=== PATIENT | female | born 1960 | race Caucasian/White ===

== ENCOUNTER → 2016-07-03 | Outpatient (REF) ==
[~2016-07-03] MED LIST: BENICAR HCT 251 TAB PO; CENESTIN0.9 MG PO; CEPHALEXIN500 M1 PO
== END ==
LOC: WSOH 08:00
DX: Z01.89 Encounter for other specified special examinations (principal)

== ENCOUNTER → 2016-08-08 | Outpatient (CLI) | payer BC | LOC: MC.RAD 08:59 | DX: Z12.31 Encounter for screening mammogram for malignant neoplasm of breast (principal) ==

== ENCOUNTER → 2017-04-24 | Outpatient (CLI) | payer BC | LOC: COL.RAD 09:27 | DX: K43.9 Ventral hernia without obstruction or gangrene (principal) ==

== ENCOUNTER → 2017-09-04 | Outpatient (CLI) | payer BC | LOC: COL.RAD 08:04 | DX: R14.0 Abdominal distension (gaseous) (principal); R11.0 Nausea ==

== ENCOUNTER → 2017-09-13 | Outpatient (CLI) | payer BC | LOC: MC.RAD 14:18 | DX: Z12.31 Encounter for screening mammogram for malignant neoplasm of breast (principal) ==

== ENCOUNTER 2018-01-12 00:21 | Emergency (ER) | payer BC ==
[~2018-01-12] VITALS: Ht 167.6 cm; Wt 78.2 kg
[2018-01-12 00:25] VITALS: BP 216/98; PULSE 86; TEMP 97.7
== END 2018-01-12 01:52 | disposition left against medical advice (07) ==
LOC: COL.ER 00:21
DX: J02.9 Acute pharyngitis, unspecified (principal)

== ENCOUNTER 2018-03-04 16:57 | Emergency (ER) | payer OTHER, BC ==
[~2018-03-04] VITALS: Ht 167.6 cm; Wt 77.3 kg
[2018-03-04 17:00] VITALS: TEMP 98.1
[2018-03-04] MEDS ORDERED: BYSTOLIC5 MG PO (17:17)
[2018-03-04] MEDS ORDERED: ESTRACE 1MG1 MG/TAB PO (17:18)
[2018-03-04] MEDS ORDERED: FLEXERIL5 MG PO (19:03)
[2018-03-04] MEDS ORDERED: NORVASC 5MG5 MG/TAB PO (19:03)
[2018-03-04 19:41] VITALS: BP 167/90; PULSE 59
== END 2018-03-04 19:45 | disposition home or self-care (01) ==
LOC: COL.ER 16:57
DX: S00.93XA Contusion of unspecified part of head, initial encounter (principal); S60.221A Contusion of right hand, initial encounter; I10 Essential (primary) hypertension; W10.9XXA Fall (on) (from) unspecified stairs and steps, initial encounter; Y92.59 Other trade areas as the place of occurrence of the external cause

== ENCOUNTER → 2018-10-01 | Outpatient (CLI) | payer BC ==
[~2018-10-01] MED LIST changes: +BYSTOLIC5 MG PO; +ESTRACE 1MG1 MG/TAB PO; +FLEXERIL5 MG PO; +NORVASC 5MG5 MG/TAB PO
== END ==
LOC: MC.RAD 09-15 07:15
DX: Z12.31 Encounter for screening mammogram for malignant neoplasm of breast (principal)

== ENCOUNTER → 2019-10-05 | Outpatient (CLI) | payer BC | LOC: MC.RAD 06:58 | DX: Z12.31 Encounter for screening mammogram for malignant neoplasm of breast (principal) ==

== ENCOUNTER → 2020-10-05 | Outpatient (CLI) | payer BC | LOC: MC.RAD 07:28 | DX: Z12.31 Encounter for screening mammogram for malignant neoplasm of breast (principal); N64.89 Other specified disorders of breast ==

== ENCOUNTER → 2020-10-07 | Outpatient (CLI) | payer BC | LOC: MC.RAD 10:52 | DX: N64.89 Other specified disorders of breast (principal) ==

== ENCOUNTER → 2021-10-16 | Outpatient (CLI) | payer BC | LOC: MC.RAD 08:28 | DX: Z12.31 Encounter for screening mammogram for malignant neoplasm of breast (principal) ==

== ENCOUNTER → 2023-11-06 | Outpatient (CLI) | payer BC | LOC: MC.RAD 13:07 | DX: Z12.31 Encounter for screening mammogram for malignant neoplasm of breast (principal) ==